=== PATIENT | female | born 1995 | race Two or more races ===

== ENCOUNTER 2019-03-07 23:55 | Emergency (ER) | payer MEDICAID ==
[~2019-03-07] VITALS: Ht 162.6 cm; Wt 64.0 kg
[2019-03-08 00:01] VITALS: BP 110/74
== END 2019-03-08 01:22 | disposition left against medical advice (07) ==
LOC: ER 23:55
DX: M25.561 Pain in right knee (principal); Z53.21 Procedure and treatment not carried out due to patient leaving prior to being seen by health care provider